=== PATIENT | male | born 1940 | race Caucasian/White ===

== ENCOUNTER 2018-08-14 05:34 | Day surgery (SDC) | payer OTHER ==
[~2018-08-14] VITALS: Ht 195.6 cm; Wt 124.7 kg
--- NOTE | ~2018-08-14 | O ---
[facility] [place] [address] OPERATIVE REPORT Name: CARLYSERGEY Estefany Room #: 150-8 [facility]..#: [id number] Admission: 08/14/18 ������������������ Attend Phys: Sergey Monge MD Discharge: ������������������ Date of : 44 Report #: [id number] THIS REPORT FOR: //name// CC: Dr. Mirza Monge DATE OF SERVICE: 08/14/2018 PREOPERATIVE DIAGNOSIS: Bilateral upper lid ptosis with superior visual field defects both eyes. POSTOPERATIVE DIAGNOSIS: Bilateral upper lid ptosis with superior visual field defects both eyes. OPERATION PERFORMED: Bilateral upper lid functional ptosis repair. [employer]NA[employer]: None. ANESTHESIA: Local with IV sedation. COMPLICATIONS: None. INDICATIONS FOR PROCEDURE: This patient has bilateral upper lid ptosis with superior visual field loss both eyes. Visual field testing demonstrates dense superior visual defects. Retesting with the upper lid elevated shows an improvement in visual field loss of over 30% and in excess of 12 degrees. The current procedure is being undertaken in order to improve the patient's visual function. Informed consent was obtained to include but not limited to the risk of loss of vision, bleeding, infection, scarring, failure to improve the problem and need for further surgery, such as adjustment of lid height. DESCRIPTION OF PROCEDURE: The patient was taken to the operating room, where 2% Xylocaine with epinephrine mixed with equal parts of 0.75% Marcaine with Wydase was administered transcutaneously to each upper lid. The patient was then prepped and draped in the usual sterile fashion. An upper lid crease incision was then made bilaterally and the dissection was carried down until the orbital septum was identified. The orbital septum was then cleared and the preaponeurotic fat identified. The levator aponeurosis was then disinserted from the anterior surface of the tarsal plate and dissected free in the avascular Knox's muscle plane. The aponeurosis was then advanced and reattached to the anterior surface of the tarsal plate with interrupted [facility] [address] [place] [address] OPERATIVE REPORT Name: SERGEY CARROLL Room #: 150-8 [employer]#: [id number] Admission: 08/14/18 ������������������ Attend Phys: Sergey Monge MD Discharge: ������������������ Date of : 44 Report #: [id number] mattress 6-0 Novafil sutures on each side, adjusting for height and contour. The redundant aponeurosis was then amputated. The incision was then closed with multiple interrupted 6-0 chromic sutures that were used to recreate an upper lid crease. The skin was closed with a running 6-0 plain gut suture. The wound was then cleaned and dressed with ophthalmic antibiotic ointment followed by a Telfa pad. The patient was transported to the recovery area, having tolerated the procedure well with no anesthesia or operative complications being noted. ��������������������������������������������� ���������������������������������������� By: ��������������������������������������������� [id number] Sergey Monge MD /juana
[~2018-08-14 05:34] MED LIST: ASPIR 8181 MG PO; COREG25 MG PO; COSOPT OCUMETER10 M1 OPHTHALMIC; DUOFER 28 MG TA28 MG PO; FLOMAX0.4 MG PO; GLUCOSAMINE CH1 EAC2 PO; HM CALCIUM-MAG1 EACH PO; HM SUPER VITA400 MCG PO; IMDUR 60 MG TAB60 M1 PO; LASIX 40 MG TAB40 M2 PO; LIPITOR80 MG PO; LISINOPRIL20 MG PO; MINOXIDIL10 MG PO; MYCOPHENOLIC A360 MG PO; NEURONTIN 300300 M1 PO; NOVOLOG100 UNIT/1; PREDNISONE 2.52.5 M1 PO; PROAIR HFA8.5 GM INH; PROSCAR 5MG TABL5 MG PO; SPIRIVA INH; SYMBICORT80 MCG/4.1 INH; THERA TEARS1 EACH OPHTHALMIC; VITAMIN C1000 MG PO; VITAMIN D5000 UNIT PO; VITAMIN E400 UNIT PO; XALATAN2.5 ML OPHTHALMIC
[2018-08-14 12:30] VITALS: BP 154/59
== END 2018-08-14 14:30 | disposition home or self-care (01) ==
LOC: OR 05:34 → TBA 05:34 → OR 07:38
DX: H02.413 Mechanical ptosis of bilateral eyelids (principal); H53.462 Homonymous bilateral field defects, left side; H53.461 Homonymous bilateral field defects, right side; Z68.32 Body mass index [BMI] 32.0-32.9, adult; Z98.890 Other specified postprocedural states; Z79.899 Other long term (current) drug therapy; J43.9 Emphysema, unspecified; G47.30 Sleep apnea, unspecified; Z87.891 Personal history of nicotine dependence; E78.00 Pure hypercholesterolemia, unspecified; I10 Essential (primary) hypertension; Z95.5 Presence of coronary angioplasty implant and graft; E11.9 Type 2 diabetes mellitus without complications; Z79.84 Long term (current) use of oral hypoglycemic drugs; Z79.4 Long term (current) use of insulin
CPT/HCPCS: 50010; 50101; 50386; 50398; 51636; 56528; 56531; 62110; 62850; 70005